=== PATIENT | male | born 1940 | race Caucasian/White ===

== ENCOUNTER → 2020-03-27 14:43 | Outpatient (BNVA) | payer MEDICARE, OTHER, SELFPAY | PROVIDERS: PCP Internal Medicine; Referring Provider Internal Medicine; Visit Provider Urology | DX: N42.31 Prostatic intraepithelial neoplasia (principal) | CPT/HCPCS: Q3014 ==

== ENCOUNTER → 2020-10-16 10:41 | Outpatient (BNVA) | payer MEDICARE, OTHER, SELFPAY | PROVIDERS: PCP Internal Medicine; Visit Provider Urology | DX: N40.1 Benign prostatic hyperplasia with lower urinary tract symptoms (principal); R39.12 Poor urinary stream; R97.20 Elevated prostate specific antigen [PSA]; N42.31 Prostatic intraepithelial neoplasia | CPT/HCPCS: 99212 ==

== ENCOUNTER → 2021-04-18 09:02 | Outpatient (BNVA) | payer MEDICARE, OTHER, SELFPAY | PROVIDERS: PCP Internal Medicine; Visit Provider Urology | DX: R97.20 Elevated prostate specific antigen [PSA] (principal) | CPT/HCPCS: Q3014 ==

== ENCOUNTER → 2021-05-22 14:23 | Outpatient (BNVA) | payer MEDICARE, OTHER, SELFPAY | PROVIDERS: PCP Internal Medicine; Visit Provider Urology | DX: R97.20 Elevated prostate specific antigen [PSA] (principal); N40.0 Benign prostatic hyperplasia without lower urinary tract symptoms; N42.31 Prostatic intraepithelial neoplasia | CPT/HCPCS: 99212 ==

== ENCOUNTER → 2021-11-26 10:58 | Outpatient (BNVA) | payer MEDICARE, OTHER, SELFPAY | PROVIDERS: PCP Internal Medicine; Visit Provider Urology | DX: N40.0 Benign prostatic hyperplasia without lower urinary tract symptoms (principal); R97.20 Elevated prostate specific antigen [PSA] | CPT/HCPCS: Q3014 ==

== ENCOUNTER → 2022-06-03 14:41 | Outpatient (BNVA) | payer MEDICARE, OTHER, SELFPAY | PROVIDERS: PCP Internal Medicine; Visit Provider Urology | DX: R97.20 Elevated prostate specific antigen [PSA] (principal) | CPT/HCPCS: 99212 ==

== ENCOUNTER 2022-06-24 07:22 | Outpatient (REF) | payer MEDICARE, OTHER, SELFPAY ==
[2022-06-24 08:01] VITALS: BMI 19.0
[2022-06-24 08:02] VITALS: BP 147/77; PULSE 94; RESP 16; TEMP 36.9; O2SAT 97
--- NOTE | 2022-06-24 08:28 | P.OP_ITS ---
Operative Note Operative Note Date of Service: 06/24/22 Narrative: Preoperative diagnosis: Elevated PSA Postoperative diagnosis: Elevated PSA Prostate Cancer Procedure: 1. transrectal ultrasound measurement of prostate 2. transrectal ultrasound-guided pudendal nerve block 3. transrectal ultrasound-guided prostate biopsy 12 core Surgeon: Dr. Fracisco Loza Anesthetic: Local Indications for procedure: Elevated PSA - PSA 3.4 on finasteride Procedure: After informed consent was verified, the patient was brought into the procedure area and lay left-hand side down on the table. Patient identity confirmed. Perioperative antibiotics confirmed. Safety pause time out performed. GI performed to dilate rectal sphincter Iodine 10cc with Gel was placed per rectum Ultrasound probe was placed per rectum The prostate was measured in 3 dimensions Total volume equals 35 gm No cystic structures were noted calcifications were noted at the surgical/transition margin The prostate was otherwise homogeneous in nature - uneven with right lobe larger than left An ultrasound-guided pudendal nerve block was performed using 10 cc of 1% lidocaine. 8 cc was placed at the base and 2 cc of the apex. A 12 core biopsy was performed with 6 cores each side. Two cores were taken at the apex, mid and base. Cores were spaced between lateral and medial. He tolerated the procedure well. Was able to ambulate to bathroom after 5 minutes. Printed instructions regarding antibiotic use and common side effects such as l ow-grade temperature, potential infection and bleeding were given Pathology: 12 core prostate biopsy.
== END 2022-06-24 07:23 | disposition home or self-care (01) ==
LOC: HO.MS 07:22
PROVIDERS: PCP Internal Medicine; Visit Provider Urology
PROC: (CPT 55700; principal; 2022-06-24 08:00)
DX: C61 Malignant neoplasm of prostate (principal); R97.21 Rising PSA following treatment for malignant neoplasm of prostate
CPT/HCPCS: 55700; 76942; 88305

== ENCOUNTER → 2022-07-02 11:50 | Outpatient (BNVA) | payer MEDICARE, OTHER, SELFPAY | PROVIDERS: PCP Internal Medicine; Visit Provider Urology | DX: C61 Malignant neoplasm of prostate (principal) | CPT/HCPCS: Q3014 ==

== ENCOUNTER → 2022-07-15 12:58 | Outpatient (BNVA) | payer MEDICARE, OTHER, SELFPAY | PROVIDERS: PCP Internal Medicine; Visit Provider Urology | DX: C61 Malignant neoplasm of prostate (principal) | CPT/HCPCS: 96402; J9217 ==

== ENCOUNTER → 2022-09-11 10:57 | Outpatient (REF) | payer MEDICARE, OTHER, SELFPAY | LOC: HO.NUCMED 10:57 | PROVIDERS: PCP Internal Medicine; Visit Provider Urology | DX: C61 Malignant neoplasm of prostate (principal); C79.51 Secondary malignant neoplasm of bone | CPT/HCPCS: 78306; A9503 ==

== ENCOUNTER 2023-01-06 11:24 | Outpatient (AMB) | payer MEDICARE, OTHER, SELFPAY ==
--- NOTE | 2023-01-06 11:45 | A.OFFVIS_ITS ---
Intake Intake Visit Reasons: 6M/bone scan(set) Intake Note: Patient is Present for Follow Up Urology Medication: Finasteride Antibiotic Allergies: None Blood Thinners: None Allergies No Known Allergies Allergy (Verified 07/02/22 11:52) HPI HPI Comments History of Present Illness Details Avery is a pleasant male. He is a patient of Dr. Archibald. 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 9 (4+5) (right base medial), 8 (3+5) (with tertiary 4) (right mid medial) Tumor quantitation: Number cores positive: 2 Total number of cores: 12 % of tissue involved: 5.5 % Periprostatic fat inv.: Not identified. Seminal vesicle inv.: Not identified. Perineural inv.: Present Lymphovascular invasion: Not identified Prior prostate biopsy 2012 demonstrating PIN PSA - historical range 1.7 to 2 - 09/26 1.9, 03/30 3.3, 09/27 3.4, 05/29 4.9 Imaging - 04/30 MRI prostate 35 g, equivocal PiRADs - no suspicious lesions - 09/28 bone scan negative PFSH Medical History PIN (prostatic intraepithelial neoplasia) Microscopic hematuria BPH (benign prostatic hyperplasia) Elevated PSA Surgical History History of surgery Review of Systems Const Denies chills and Denies fever(s) Card Reports no additional complaints and Denies syncope Resp Denies cough GI Denies abdominal pain and Denies heartburn Reports as per HPI and Denies change in libido Neuro Denies syncope Psych Denies change in libido Endo Denies change in libido Physical Exam Const General: cooperative, healthy appearing, comfortable and no acute distress Orientation/consciousness: patient oriented x3 HEENT Face and sinus: Yes normal facial exam Mouth: moist mucous membranes Neck Neck: Yes normal visual inspection, Yes full ROM and Yes trachea midline Chest Chest palpation & inspection: normal inspection of the chest Resp Effort & Inspection: normal respiratory effort, able to speak in complete sentences and no respiratory distress GI Inspection: Yes normal to inspection Back/Spine/Pelvis Cervical Spine: normal cervical lordosis Thoracic/Lumbar Spine: thoracic and lumbar spine normal to inspection Skin General skin exam: no rashes or lesions noted Neuro General: patient oriented x3, gait normal, tone normal and moves all extremities Extrem General: Yes normal to inspection and Yes capillary refill normal Assessment & Plan Assessment & Plan (1) Prostate cancer: Code(s): C61 - Malignant neoplasm of prostate (2) BPH (benign prostatic hyperplasia): Code(s): N40.0 - Benign prostatic hyperplasia without lower urinary tract symptoms Plan Three month follow-up labs Orders: Orders Prostate Specific Antigen 3 Months C61 - Malignant neoplasm of prostate Testosterone, Total 3 Months C61 - Malignant neoplasm of prostate Patient Instructions: Imaging studies, laboratory and physical exam results were discussed and reviewed in detail. No major barriers to patient understanding were identified. An opportunity to ask questions regarding the treatment plan was provided. All questions were answered. The patient expressed understanding and agreement with the above treatment plan. The patient is aware they should contact our office by phone for worsening of th eir current condition or the appearance of new urologic symptoms. Compliance is encouraged with any medications and followup testing that is ordered. It is a privilege to participate in the urologic care of your patient. If you have any questions or concerns regarding treatment for the above conditions, or other urologic issues, please do not hesitate to contact me. The office telephone contact is [phone]. This note is constructed using voice recognition software. While every effort has been made to ensure accuracy health information coder errors may have been included. Yours sincerely, Dr Fracisco Loza MD, [facility] - Urology Providers of Expert, Compassionate Care for the Genitourinary System Coding Level of Care Code Est Pt Level 3 (62597) Diagnoses Prostate cancer C61 BPH (benign prostatic hyperplasia) N40.0
== END 2023-01-06 12:17 | disposition home or self-care (01) ==
PROVIDERS: Visit Provider Urology
DX: C61 Malignant neoplasm of prostate (principal); N40.0 Benign prostatic hyperplasia without lower urinary tract symptoms
CPT/HCPCS: 99213

== ENCOUNTER → 2023-01-06 11:24 | Outpatient (BNVA) | payer MEDICARE, OTHER, SELFPAY | PROVIDERS: Visit Provider Urology | DX: D07.5 Carcinoma in situ of prostate (principal); N40.0 Benign prostatic hyperplasia without lower urinary tract symptoms; R97.21 Rising PSA following treatment for malignant neoplasm of prostate | CPT/HCPCS: 99212 ==

== ENCOUNTER 2023-05-05 13:26 | Outpatient (AMB) | payer MEDICARE, OTHER, SELFPAY ==
--- NOTE | 2023-05-05 13:27 | MHC.OFFVIS ---
Intake Intake Visit Reasons: PSA/Testo Follow Up(set)Confirmed Intake Note: Patient is Present for Telephone Follow Up labs Urology Med: Finasteride Antibiotic Allergy: None Blood Thinner: None Confirmed pharmacy: [facility] Allergies No Known Allergies Allergy (Verified 05/05/23 13:28) HPI HPI Comments History of Present Illness Details Avery is a pleasant male. He is a patient of Dr. Archibald. 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 9 (4+5) (right base medial), 8 (3+5) (with tertiary 4) (right mid medial) Tumor quantitation: Number cores positive: 2 Total number of cores: 12 % of tissue involved: 5.5 % Periprostatic fat inv.: Not identified. Seminal vesicle inv.: Not identified. Perineural inv.: Present Lymphovascular invasion: Not identified Prior prostate biopsy 2012 demonstrating PIN PSA - historical range 1.7 to 2 - 09/26 1.9, 03/30 3.3, 09/27 3.4, 05/29 4.9, 05/02 0.8 T 600 Imaging - 04/30 MRI prostate 35 g, equivocal PiRADs - no suspicious lesions - 09/28 bone scan negative PFSH Medical History PIN (prostatic intraepithelial neoplasia) Microscopic hematuria BPH (benign prostatic hyperplasia) Elevated PSA Surgical History History of surgery Review of Systems Const Denies chills and Denies fever(s) Card Reports no additional complaints and Denies syncope Resp Denies cough GI Denies abdominal pain and Denies heartburn Reports as per HPI and Denies change in libido Neuro Denies syncope Psych Denies change in libido Endo Denies change in libido Physical Exam Const General: cooperative, healthy appearing, comfortable and no acute distress Orientation/consciousness: patient oriented x3 HEENT Face and sinus: Yes normal facial exam Mouth: moist mucous membranes Neck Neck: Yes normal visual inspection, Yes full ROM and Yes trachea midline Chest Chest palpation & inspection: normal inspection of the chest Resp Effort & Inspection: normal respiratory effort, able to speak in complete sentences and no respiratory distress GI Inspection: Yes normal to inspection Back/Spine/Pelvis Cervical Spine: normal cervical lordosis Thoracic/Lumbar Spine: thoracic and lumbar spine normal to inspection Skin General skin exam: no rashes or lesions noted Neuro General: patient oriented x3, gait normal, tone normal and moves all extremities Extrem General: Yes normal to inspection and Yes capillary refill normal Assessment & Plan Assessment & Plan (1) Prostate cancer: Code(s): C61 - Malignant neoplasm of prostate Plan Six-month follow-up PSA office Orders: Orders Prostate Specific Antigen 6 Months C61 - Malignant neoplasm of prostate Patient Instructions: Imaging studies, laboratory and physical exam results were discussed and reviewed in detail. No major barriers to patient understanding were identified. An opportunity to ask questions regarding the treatment plan was provided. All questions were answered. The patient expressed understanding and agreement with the above treatment plan. The patient is aware they should contact our office by phone for worsening of their current condition or the appearance of new urologic symptoms. Compliance is encouraged with any medications and followup testing that is ordered. It is a privilege to participate in the urologic care of your patient. If you have any questions or concerns regarding treatment for the above conditions, or other urologic issues, please do not hesitate to contact me. The office telephone contact is [phone]. This note is constructed using voice recognition software. While every effort has been made to ensure accuracy tender coordinator errors may have been included. Yours sincerely, Dr Fracisco Loza MD, [facility] - Urology Providers of Expert, Compassionate Care for the Genitourinary System Telehealth Telehealth Location of provider rendering services: practice address Location of patient: address on file Patient Identification confirmed using: Name, : Yes Telehealth method: video Patient verbally consented to treatment: Yes Patient verbally consented to billing insurance company: Yes Patient informed of any privacy concerns related to visit: Yes Coding Level of Care Code Tele Est Pt Level 3 (49367) Diagnoses Prostate cancer C61
== END 2023-05-05 13:57 | disposition home or self-care (01) ==
LOC: HO.HUSH 13:26
PROVIDERS: PCP Internal Medicine; Visit Provider Urology
DX: C61 Malignant neoplasm of prostate (principal)
CPT/HCPCS: 99213

== ENCOUNTER → 2023-05-05 13:26 | Outpatient (BNVA) | payer MEDICARE, OTHER, SELFPAY | PROVIDERS: PCP Internal Medicine; Visit Provider Urology ==